=== PATIENT | male | born 1990 | race Caucasian/White ===

== ENCOUNTER 2021-11-14 19:17 | Inpatient (IN) | payer OTHER ==
[2021-11-14] MEDS ORDERED: ONDANSETRON *ODT* 4 MG TABLET SL PRN (20:06)
[2021-11-14] MEDS ORDERED: LOPERAMIDE HCL 2 MG CAPSULE PO PRN (20:06)
[2021-11-14] MEDS ORDERED: ACETAMINOPHEN 325 MG TABLET (FP) PO PRN (20:06)
[2021-11-14] MEDS ORDERED: MAG HYDROX/AL HYDROX/SIMETH 30 ML UNIT-DOSE CUP PO PRN (20:06)
[2021-11-14] MEDS ORDERED: MAGNESIUM CITRATE 300 ML BOTTLE PO PRN (20:06)
[2021-11-14] MEDS ORDERED: MAGNESIUM HYDROX 2400MG/30ML ORAL SUSPENSION 30 ML CUP PO PRN (20:06)
[2021-11-14] MEDS ORDERED: DICYCLOMINE HCL 10 MG CAPSULE PO PRN (20:06)
[2021-11-14] MEDS ORDERED: BISMUTH SUBSALICYLATE 524 MG/30 ML PO PRN (20:06)
[2021-11-14] MEDS ORDERED: MENTHOL/PHENOL 1 EACH UD MM PRN (20:06)
[2021-11-14 20:59] VITALS: BMI 29.9
[2021-11-14] MEDS ORDERED: chlordiazePOXIDE HCL 25 MG CAPSULE ONE (21:15)
[2021-11-14] MEDS: chlordiazePOXIDE HCL 25 MG CAPSULE PO PRN ×2 (21:16→22:16)
[2021-11-14] MEDS: MELATONIN 5 MG TABLETS PO SCH (22:15)
[2021-11-14] MEDS: GABAPENTIN 300 MG CAPSULE PO SCH (22:15)
[2021-11-14] MEDS: BUPRENORPHINE HCL 8 MG TAB.SUBL SL SCH (22:16)
[2021-11-14] MEDS: THIAMINE HCL 100 MG TABLET (FP) PO SCH (22:16)
[2021-11-14] MEDS: hydrOXYzine PAMOATE 25 MG CAPSULE (FP) PO SCH (22:20)
[2021-11-14] MEDS: chlordiazePOXIDE HCL 25 MG CAPSULE PO SCH (22:21)
[2021-11-15] MEDS: chlordiazePOXIDE HCL 25 MG CAPSULE PO SCH ×2 (05:31→10:42)
[2021-11-15] MEDS: GABAPENTIN 300 MG CAPSULE PO SCH ×3 (06:25→22:27)
[2021-11-15] MEDS: BUPRENORPHINE HCL 8 MG TAB.SUBL SL SCH ×3 (06:25→17:58)
[2021-11-15] MEDS: hydrOXYzine PAMOATE 25 MG CAPSULE (FP) PO SCH ×5 (06:25→22:27)
[2021-11-15] MEDS: PRENATAL VITAMINS W/ FOLIC ACID TABLET (FP) PO SCH (10:41)
[2021-11-15] MEDS: METHOCARBAMOL 500 MG TABLET PO PRN ×2 (10:44→18:00)
[2021-11-15] MEDS: NICOTINE 10 MG CARTRIDGE (INHALER) IH PRN (12:59)
[2021-11-15] MEDS: diazePAM 5 MG TABLET PO SCH ×2 (16:00→22:30)
[2021-11-15] MEDS: IBUPROFEN 400 MG TABLET (FP) PO PRN (17:56)
[2021-11-15] MEDS: diazePAM 5 MG TABLET PO PRN (21:13)
[2021-11-15] MEDS: THIAMINE HCL 100 MG TABLET (FP) PO SCH (22:27)
[2021-11-15] MEDS: MELATONIN 5 MG TABLETS PO SCH (23:09)
[2021-11-16] MEDS: diazePAM 5 MG TABLET PO PRN ×3 (02:08→22:02)
[2021-11-16] MEDS ORDERED: chlordiazePOXIDE HCL 25 MG CAPSULE PO SCH (05:00)
[2021-11-16] MEDS: diazePAM 5 MG TABLET PO SCH ×4 (05:24→23:27)
[2021-11-16] MEDS: GABAPENTIN 300 MG CAPSULE PO SCH ×3 (05:25→22:00)
[2021-11-16] MEDS: hydrOXYzine PAMOATE 25 MG CAPSULE (FP) PO SCH ×5 (05:26→22:00)
[2021-11-16] MEDS: BUPRENORPHINE HCL 8 MG TAB.SUBL SL SCH ×3 (08:06→17:03)
[2021-11-16 10:28] LABS: HEMATOCRIT 35.6 % (35.4-49); HEMOGLOBIN 12.2 GM/dL (11.7-16.9); MCH 31.3 pg (25.7-33.7); MCHC 34.3 g/dl (32.0-35.9); MEAN PLT VOLUME 7.9 fl (7.5-11.1); PLATELET COUNT 198 10^3/uL (134-434); RBC 3.92 M/mm3 (4.00-5.60); RDW 12.8 % (11.9-15.9); WHITE BLOOD COUNT 3.8 K/mm3 (4.0-10.0)
[2021-11-16] MEDS: PRENATAL VITAMINS W/ FOLIC ACID TABLET (FP) PO SCH (10:28)
[2021-11-16] MEDS: METHOCARBAMOL 500 MG TABLET PO PRN ×2 (10:29→23:27)
[2021-11-16] MEDS: NICOTINE 10 MG CARTRIDGE (INHALER) IH PRN (10:30)
[2021-11-16 10:31] LABS: CALCIUM 9.1 mg/dL (8.5-10.1)
[2021-11-16 10:32] LABS: ALBUMIN 3.5 g/dl (3.4-5.0)
[2021-11-16 10:35] LABS: CREATININE 0.9 mg/dL (0.55-1.3)
[2021-11-16 10:36] LABS: TOT PROT 7.1 g/dl (6.4-8.2)
[2021-11-16 10:37] LABS: BILIRUBIN,TOTAL 0.3 mg/dL (0.2-1)
[2021-11-16] MEDS: IBUPROFEN 400 MG TABLET (FP) PO PRN (15:16)
[2021-11-16] MEDS: THIAMINE HCL 100 MG TABLET (FP) PO SCH (22:00)
[2021-11-16] MEDS: MELATONIN 5 MG TABLETS PO SCH ×2 (22:02→23:27)
[2021-11-17] MEDS ORDERED: chlordiazePOXIDE HCL 10 MG CAPSULE PO PRN
[2021-11-17] MEDS: cloNIDine HCL 0.1 MG TABLET PO PRN (04:10)
[2021-11-17] MEDS ORDERED: chlordiazePOXIDE HCL 10 MG CAPSULE PO SCH (05:00)
[2021-11-17] MEDS: hydrOXYzine PAMOATE 25 MG CAPSULE (FP) PO SCH ×5 (05:30→21:54)
[2021-11-17] MEDS: diazePAM 5 MG TABLET PO SCH ×3 (05:30→21:54)
[2021-11-17] MEDS: GABAPENTIN 300 MG CAPSULE PO SCH ×3 (06:32→21:54)
[2021-11-17] MEDS: BUPRENORPHINE HCL 8 MG TAB.SUBL SL SCH ×3 (07:27→17:34)
[2021-11-17] MEDS: METHOCARBAMOL 500 MG TABLET PO PRN (10:29)
[2021-11-17] MEDS: diazePAM 5 MG TABLET PO PRN ×2 (10:29→17:34)
[2021-11-17] MEDS: PRENATAL VITAMINS W/ FOLIC ACID TABLET (FP) PO SCH (10:29)
[2021-11-17] MEDS: NICOTINE 10 MG CARTRIDGE (INHALER) IH PRN (11:36)
[2021-11-17] MEDS: ACETAMINOPHEN 325 MG TABLET (FP) PO PRN ×2 (11:53→18:09)
[2021-11-17] MEDS: THIAMINE HCL 100 MG TABLET (FP) PO SCH (21:54)
[2021-11-17] MEDS: MELATONIN 5 MG TABLETS PO SCH (21:55)
[2021-11-17] MEDS: IBUPROFEN 400 MG TABLET (FP) PO PRN (22:21)
[2021-11-18] MEDS ORDERED: chlordiazePOXIDE HCL 10 MG CAPSULE PO SCH (05:00)
[2021-11-18] MEDS: diazePAM 5 MG TABLET PO SCH ×2 (05:21→17:26)
[2021-11-18] MEDS: GABAPENTIN 300 MG CAPSULE PO SCH ×3 (05:21→22:05)
[2021-11-18] MEDS: hydrOXYzine PAMOATE 25 MG CAPSULE (FP) PO SCH ×5 (05:22→22:06)
[2021-11-18] MEDS: BUPRENORPHINE HCL 8 MG TAB.SUBL SL SCH ×3 (07:51→17:26)
[2021-11-18] MEDS: PRENATAL VITAMINS W/ FOLIC ACID TABLET (FP) PO SCH (10:04)
[2021-11-18] MEDS: NICOTINE 10 MG CARTRIDGE (INHALER) IH PRN (10:05)
[2021-11-18] MEDS: METHOCARBAMOL 500 MG TABLET PO PRN (10:05)
[2021-11-18] MEDS: ACETAMINOPHEN 325 MG TABLET (FP) PO PRN (10:47)
[2021-11-18] MEDS: IBUPROFEN 400 MG TABLET (FP) PO PRN (17:53)
[2021-11-18] MEDS: MELATONIN 5 MG TABLETS PO SCH (22:06)
[2021-11-18] MEDS: cloNIDine HCL 0.1 MG TABLET PO PRN (22:06)
[2021-11-18] MEDS: THIAMINE HCL 100 MG TABLET (FP) PO SCH (22:06)
[2021-11-18] MEDS: diazePAM 5 MG TABLET PO PRN (22:06)
[2021-11-19] MEDS ORDERED: chlordiazePOXIDE HCL 10 MG CAPSULE PO ONE (05:00)
[2021-11-19] MEDS ORDERED: diazePAM 5 MG TABLET PO ONE (05:00)
[2021-11-19] MEDS: BUPRENORPHINE HCL 8 MG TAB.SUBL SL SCH (07:46)
[2021-11-19] MEDS: hydrOXYzine PAMOATE 25 MG CAPSULE (FP) PO SCH ×2 (07:46→10:42)
[2021-11-19] MEDS: GABAPENTIN 300 MG CAPSULE PO SCH (07:46)
[2021-11-19 09:20] VITALS: BP 124/80; PULSE 55; TEMP 96.8
[2021-11-19] MEDS: PRENATAL VITAMINS W/ FOLIC ACID TABLET (FP) PO SCH (10:37)
[2021-11-19] MEDS: diazePAM 5 MG TABLET PO PRN (10:40)
[2021-11-19] MEDS: METHOCARBAMOL 500 MG TABLET PO PRN (10:41)
[2021-11-19] MEDS: ACETAMINOPHEN 325 MG TABLET (FP) PO PRN (10:41)
== END 2021-11-19 11:34 | disposition home or self-care (01) | DRG 773 ==
LOC: YASAS 19:17 → Y6N 20:15
PROVIDERS: ADMIT Allergy & Immunology; ATTEND Allergy & Immunology
PROC: HZ2ZZZZ Detoxification Services for Substance Abuse Treatment (ICD-10-PCS; principal; 2021-11-14)
DX: F10.230 Alcohol dependence with withdrawal, uncomplicated (principal); F11.20 Opioid dependence, uncomplicated; F13.20 Sedative, hypnotic or anxiolytic dependence, uncomplicated; F12.20 Cannabis dependence, uncomplicated; F17.210 Nicotine dependence, cigarettes, uncomplicated; F19.280 Other psychoactive substance dependence with psychoactive substance-induced anxiety disorder; F19.282 Other psychoactive substance dependence with psychoactive substance-induced sleep disorder; F43.10 Post-traumatic stress disorder, unspecified; F90.9 Attention-deficit hyperactivity disorder, unspecified type; I10 Essential (primary) hypertension; Z62.810 Personal history of physical and sexual abuse in childhood; Z86.69 Personal history of other diseases of the nervous system and sense organs; Z98.890 Other specified postprocedural states; Z56.0 Unemployment, unspecified; Z88.5 Allergy status to narcotic agent
CPT/HCPCS: 36415; 80053; 85027; 86780; C9803-CS; U0003; U0005